=== PATIENT | male | born 1965 | race Caucasian/White ===

== ENCOUNTER 2018-09-23 17:49 | Observation (INO) | payer BC, OTHER ==
[2018-09-23] MEDS ORDERED: Aspirin 81 MG Tab.Chew PO ONE (17:51)
[2018-09-23] MEDS: Nitroglycerin Lingual Spray 4.9 GM Canister TRLING SCH ×2 (18:05→18:19)
[2018-09-23 18:17] LABS: CHLORIDE,CL 104 mEq/L (98-106); SODIUM,NA 142 mEq/L (136-145)
[2018-09-23] MEDS ORDERED: Enoxaparin 30 MG/0.3 ML Syringe SUBCUT SCH (19:48)
[2018-09-23] MEDS ORDERED: Morphine 2 MG/ML Syringe IVPUSH PRN (19:48)
[2018-09-23] MEDS ORDERED: Sodium Chloride 0.9% 10 ML Syringe FLUSH PRN (19:48)
--- NOTE | 2018-09-23 19:58 | EDM.PDOC ---
ED HPI GENERAL MEDICAL PROBLEM - General Chief Complaint: Chest Pain Stated Complaint: Chest pain Time Seen by Provider: 09/23/18 18:10 Source of Information: Reports: Patient History Limitations: Reports: No Limitations - History of Present Illness INITIAL COMMENTS - FREE TEXT/NARRATIVE: Roderick is a 52 yo male who arrives to the ED via private vehicle with concerns of chest pain. 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 States while standing in the meeting he started to get mid to left sided chest pain. States he would rate it about a 7 out of 10. Admits to having a history of this in the past and last time was roughly about a month ago but it went away after roughly 20 minutes. States last time he took TUMS and a glass of milk but isn't sure if that was what caused the pain to subside. He states this evening he thought maybe it was heartburn and went and got some TUMS. Admits after 15 minutes the pain was constant and not subsiding he decided to come to the ED. He denies any worsening discomfort with exertion. Was given 2 sprays of nitro and admits the pain initially came down to about a 5 with first dose and no change with second dose. He admits to a history of heart attack in the past, roughly 18 months ago. States his troponin was elevated and was seen by cardiology at [facility] in [place]. He underwent a cardiac cath and nothing was found. Denies any stents or ballooning at that time. States the vessels were wide open. 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 He admits every year he had an echocardiogram and now his EF has came back to normal limits, last one completed about 1 1/2 years ago. Onset: Today, Sudden Duration: Constant Location: Reports: Chest Improves with: Reports: None Worsens with: Reports: None Associated Symptoms: Reports: No Other Symptoms Treatments [employer]: Reports: Other (see below) (tums) Mid-Sternal Chest Pain Score (Numeric/FACES): 5 - Related Data Allergies Allergy/AdvReac Type Severity Reaction Status Date / Time shellfish derived Allergy Anaphylactic Verified 09/23/18 18:12 Shock Home Meds: Home Meds Aspirin [Ecotrin] 81 mg PO DAILY 09/23/18 [History] Carvedilol [Coreg] 6.25 mg PO BID 09/23/18 [History] Lisinopril 20 mg PO DAILY 09/23/18 [History] tiZANidine [Zanaflex] 4 mg PO BEDTIME 09/23/18 [History] traZODone HCl [Trazodone HCl] 100 mg PO BEDTIME 09/23/18 [History] Past Medical History HEENT History: Reports: None Cardiovascular History: Reports: Cardiomyopathy (resolved), Hypertension, [place]. Denies: High Cholesterol Respiratory History: Reports: None Gastrointestinal History: Reports: GERD Musculoskeletal History: Reports: Back Pain, Chronic Neurological History: Reports: None Psychiatric History: Reports: Panic Attack (resolved, admits only had around son 's ) - Past Surgical History GI Surgical History: Reports: Other (See Below) Other GI Surgeries/Procedures: gastric bypass Musculoskeletal Surgical History: Reports: Arthroscopic Knee Social & Family History - Tobacco Use Years of Tobacco use: 40 Packs/Tins Daily: 0.2 - Recreational Drug Use Recreational Drug Use: No ED ROS GENERAL - Review of Systems Review Of Systems: See Below Constitutional: Reports: No Symptoms. Denies: Fever, Chills, Diaphoresis HEENT: Reports: No Symptoms Respiratory: Denies: Shortness of Breath, Pleuritic Chest Pain, Cough Cardiovascular: Reports: Chest Pain, Blood Pressure Problem. Denies: Edema, Lightheadedness, Palpitations, Syncope GI/Abdominal: Reports: No Symptoms : Reports: No Symptoms Musculoskeletal: Reports: No Symptoms Skin: Reports: No Symptoms Neurological: Reports: No Symptoms Psychiatric: Reports: No Symptoms ED EXAM, GENERAL - Physical Exam Exam: See Below Exam Limited By: No Limitations General Appearance: Alert, WD/WN, No Apparent Distress Ears: Normal External Exam, Normal Canal, Hearing Grossly Normal, Normal TMs Nose: Normal Inspection, Normal Mucosa, No Blood Throat/Mouth: Normal Inspection, Normal Lips, Normal Teeth, Normal Gums, Normal Oropharynx, Normal Voice, No Airway Compromise Head: Atraumatic, Normocephalic Neck: Normal Inspection, Supple Respiratory/Chest: No Respiratory Distress, Lungs Clear, Normal Breath Sounds, No Accessory Muscle Use Cardiovascular: Normal Peripheral Pulses, Regular Rate, Rhythm, No Edema, No Murmur GI/Abdominal: Normal Bowel Sounds, Soft, No Organomegaly, Tender (mild tenderness to LUQ, just below rib) Extremities: Normal Inspection, No Pedal Edema Neurological: Alert, Oriented, Normal Cognition, No Motor/Sensory Deficits Psychiatric: Normal Affect, Normal Mood Skin Exam: Warm, Dry, Intact, Normal Color, No Rash EKG INTERPRETATION EKG Date: 09/23/18 Time: 17:25 Rhythm: NSR [place]: LAD-Left Trafford Deviation ST-T: Normal Comparison: NA - No Prior EKG Course - Vital Signs Last Recorded V/S: Last Vital Signs Temp 99.3 F 09/23/18 18:18 Pulse 82 09/23/18 18:52 Resp 20 09/23/18 18:52 BP 133/92 H 09/23/18 18:52 Pulse Ox 96 09/23/18 18:52 - Orders/Labs/Meds Orders: Active Orders 24 hr Category Date Time Status Patient Status Manage Transfer [TRANSFER] Routine ADT 09/23/18 19:17 Ordered Chest 2V [CR] Stat Exams 09/23/18 17:52 Taken Nitroglycerin [Nitrolingual] Med 09/23/18 18:05 Active See Dose Instructions HOLLY ASDIRECTED Resuscitation Status Routine Resus Stat 09/23/18 19:18 Ordered Medication Orders Nitroglycerin (Nitrolingual) 0 gm HOLLY ASDIRECTED JOHANA Last Admin: 09/23/18 18:19 Dose: 1 spray Admin: 09/23/18 18:05 Dose: 1 spray Labs: Laboratory Tests 09/23/18 09/23/18 09/23/18 Range/Units 17:52 17:52 17:52 WBC 11.2 H (5.0-10.0) 10^3/uL RBC 4.86 (4.50-6.00) 10^6/uL Hgb 14.8 (14.0-18.0) g/dL Hct 45.6 (40.0-54.0) % MCV 93.8 (82.0-94.0) fL MCH 30.5 (27.0-32.0) pg MCHC 32.5 L (33.0-38.0) g/dL RDW Coeff of [place] 12.7 (11.0-15.0) % Plt Count 208 (150-400) 10^3/uL Neut % (Auto) 67.4 (35-85) % Lymph % (Auto) 18.6 (10-55) % Noble % (Auto) 11.6 (0-16) % Eos % (Auto) 2.2 (0-5) % Baso % (Auto) 0.2 (0-3) % Neut # (Auto) 7.56 H (1.80-7.00) 10^3/uL Lymph # (Auto) 2.08 (1.00-4.80) 10^3/uL Noble # (Auto) 1.30 H (0.00-0.80) 10^3/uL Eos # (Auto) 0.25 (0.00-0.45) 10^3/uL Baso # (Auto) 0.02 10^3/uL PT 10.2 (9.7-12.3) SEC INR 0.98 (0.92-1.18) APTT 27.8 (23.2-32.3) SEC Sodium 142 (136-145) mEq/L Potassium 4.4 (3.5-5.0) mEq/L Chloride 104 (98-106) mEq/L Carbon Dioxide 26 (21-32) mmol/L BUN 26 H (7-18) mg/dL Creatinine 1.1 (0.7-1.3) mg/dL Est Cr Clr Drug Dosing TNP Estimated GFR (MDRD) > 60 (>=60) mL/min Glucose 109 H (75-99) mg/dL Calcium 9.3 (8.4-10.1) mg/dL Lactate Dehydrogenase 202 H (100-190) U/L Creatine Kinase 162 (35-232) U/L Troponin I 0.093 H (0.00-0.06) ng/mL Meds: Medications Generic Name Dose Route Start Last Admin Trade Name Freq PRN Reason Stop Dose Admin Nitroglycerin 0 gm 09/23/18 18:05 09/23/18 18:19 Nitrolingual TRLING 1 spray ASDIRECTED JOHANA Administration Discontinued Medications Generic Name Dose Route Start Last Admin Trade Name Freq PRN Reason Stop Dose Admin Aspirin 324 mg 09/23/18 17:51 09/23/18 17:51 Aspirin PO 09/23/18 17:52 324 mg ONETIME ONE Administration Departure - Departure Time of Disposition: 19:45 Disposition: Refer to Observation Clinical Impression: Chest pain in adult - Problem List & Annotations (1) Chest pain in adult SNOMED Code(s): 22466037 Code(s): R07.9 - CHEST PAIN, UNSPECIFIED Status: Acute Current Visit: Yes - My Orders Last 24 Hours: My Active Orders 09/23/18 17:52 Chest 2V [CR] Stat 09/23/18 18:05 Nitroglycerin [Nitrolingual] See Dose Instructions TRLETITIA ASDIRECTED 09/23/18 19:17 Patient Status Manage Transfer [TRANSFER] Routine 09/23/18 19:18 Resuscitation Status Routine - Assessment/Plan Admission H&P: Please use this note as an admission H&P Last 24 Hours: My Active Orders 09/23/18 17:52 Chest 2V [CR] Stat 09/23/18 18:05 Nitroglycerin [Nitrolingual] See Dose Instructions TRLETITIA ASDIRECTED 09/23/18 19:17 Patient Status Manage Transfer [TRANSFER] Routine 09/23/18 19:18 Resuscitation Status Routine Plan: Chest x-ray appeared stable, no acute cardiopulmonary process. Labs showed an indeterminate troponin. Will admit to Dr. Farias's services under observation for cardiac rule out. Roderick was in agreement and verbalized understanding.
[2018-09-23] MEDS ORDERED: traZODone 50 MG Tab PO SCH (20:00)
[2018-09-23] MEDS ORDERED: tiZANidine 4 MG Tab PO SCH (20:00)
[2018-09-24] MEDS ORDERED: **PTOM** Lisinopril 20 MG Tab PO SCH (08:00)
[2018-09-24] MEDS ORDERED: Aspirin 81 MG Tab.EC PO SCH (08:00)
--- NOTE | 2018-09-25 21:53 | PCM.DCSUM1 ---
Discharge Summary - Hospital Course Free Text/Narrative:: Roderick is a 52 yo male who arrives to the ED from work with chest pain. 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 Had been performing his usual duties prior to that without concern. He has had intermittent pain like this in the past. Similar occurrence a month ago, pain lasted about 20 minutes, felt like heartburn. Took some TUMS at that time and it improved. When started occurring at work and didn't subside after 15 minutes, felt it should be evaluated. Relates he had a "stress heart attack" a year and a half ago. Angiogram that was done after elevations of his troponins were negative. He has a history of a virus around his heart from pneumonia and had a previous ejection fraction of 17% but that has recovered since. ER work up showed indeterminate troponin. Admitted for serial enzymes, cardiac monitoring and repeat EKGs. Diagnosis: Stroke: No Modified Davie Scale: No Symptoms at All Modified Gabrielle Scale Score: 0 - Discharge Data Discharge Date: 09/24/18 Discharge Disposition: Home, Self-Care 01 Condition: Good - Patient Summary/Data Complications: none Hospital Course: Serial cardiac enzymes have remained the same, still 0.093 today. EKG/ telemetry unchanged. He denies any further chest pain since yesterday. Is ambulating without pain. Appetite good. Will discharge home, follow up with Dr. Esquivel. May need follow up stress test. - Patient Instructions Diet: Usual Diet as Tolerated Activity: As Tolerated - Discharge Plan *PRESCRIPTION DRUG MONITORING PROGRAM REVIEWED*: No *COPY OF PRESCRIPTION DRUG MONITORING REPORT IN PATIENT BIANCA: No Home Medications: Home Meds Aspirin [Ecotrin] 81 mg PO DAILY 09/23/18 [History] Carvedilol [Coreg] 6.25 mg PO BID 09/23/18 [History] Lisinopril 20 mg PO DAILY 09/23/18 [History] tiZANidine [Zanaflex] 4 mg PO BEDTIME 09/23/18 [History] traZODone HCl [Trazodone HCl] 100 mg PO BEDTIME 09/23/18 [History] Forms: ED Department Discharge Referrals: Eren Esquivel MD [Consulting Physician] - (Follow up with Dr. Esquivel in one week. ) - Discharge Summary/Plan Comment DC Time >30 min.: No - General Info Date of Service: 09/24/18 Admission Dx/Problem (Free Text: Atypical Chest Pain Functional Status: Reports: Pain Controlled, Tolerating Diet, Ambulating - Review of Systems General: Denies: Fever, Weakness, Fatigue HEENT: Reports: No Symptoms Pulmonary: Denies: Shortness of Breath, Cough Cardiovascular: Denies: Chest Pain, Edema, Lightheadedness Gastrointestinal: Denies: Abdominal Pain, Nausea, Vomiting Genitourinary: Reports: No Symptoms Musculoskeletal: Reports: No Symptoms Skin: Reports: No Symptoms Neurological: Reports: No Symptoms - Patient Data Vitals - Most Recent: Last Vital Signs Temp 97.5 F 09/24/18 08:00 Pulse 66 09/24/18 08:41 Resp 20 09/24/18 08:00 BP 122/77 09/24/18 08:42 Pulse Ox 97 09/24/18 08:00 Weight - Most Recent: 317 lb Med Orders - Current: Current Medications Discontinued Medications Aspirin (Aspirin) 324 mg PO ONETIME ONE Stop: 09/23/18 17:52 Last Admin: 09/23/18 17:51 Dose: 324 mg Aspirin (Halfprin) 81 mg PO DAILY [facility] Last Admin: 09/24/18 08:44 Dose: Not Given Carvedilol (Coreg) 6.25 mg PO BID [facility] Last Admin: 09/24/18 08:41 Dose: 6.25 mg Enoxaparin Sodium (Lovenox) 30 mg SUBCUT Q24H [facility] Last Admin: 09/23/18 22:04 Dose: 30 mg Lisinopril (Prinivil) 20 mg PO DAILY [facility] Last Admin: 09/24/18 08:42 Dose: 20 mg Morphine Sulfate (Morphine) 2 mg IVPUSH Q2H PRN PRN Reason: Pain (severe 7-10) Nitroglycerin (Nitrolingual) 0 gm TRLING ASDIRECTED [facility] Last Admin: 09/23/18 18:19 Dose: 1 spray Sodium Chloride (Saline Flush) 10 ml FLUSH ASDIRECTED PRN PRN Reason: Keep Vein Open Tizanidine HCl (Zanaflex) 4 mg PO BEDTIME [facility] Last Admin: 09/23/18 22:03 Dose: 4 mg Trazodone HCl (Trazodone) 100 mg PO BEDTIME [facility] Last Admin: 09/23/18 22:04 Dose: 100 mg - Exam General: Reports: Alert, Oriented HEENT: Reports: Mucous Membr. Moist/[place] Neck: Reports: Supple Lungs: Reports: Clear to Auscultation, Normal Respiratory Effort Cardiovascular: Reports: Regular Rate, Regular Rhythm GI/Abdominal Exam: Normal Bowel Sounds, Soft, Non-Tender Extremities: Normal Inspection, No Pedal Edema Skin: Reports: Warm, Dry Neurological: Reports: No New Focal Deficit
== END 2018-09-24 10:00 | disposition home or self-care (01) ==
LOC: CC.ED 17:49 → CC.MS 19:18 → UNDOADMOB 19:27
PROVIDERS: ADMIT Physician Assistant Medical; ATTEND Family Medicine
DX: R07.89 Other chest pain (principal); I10 Essential (primary) hypertension; F17.200 Nicotine dependence, unspecified, uncomplicated; E78.00 Pure hypercholesterolemia, unspecified; Z86.73 Personal history of transient ischemic attack (TIA), and cerebral infarction without residual deficits; Z79.82 Long term (current) use of aspirin; Z79.899 Other long term (current) drug therapy; Z91.013 Allergy to seafood
CPT/HCPCS: 36415; 71046; 80048; 82550; 83615; 84484; 85025; 85610; 85730; 93005; 96372; 99285; A9270; G0378; J1650